=== PATIENT | male | born 1960 | race Caucasian/White ===

== ENCOUNTER 2017-11-11 09:49 | Outpatient (CLI) | payer BC | END 2017-11-11 09:50 | disposition home or self-care (01) | LOC: BICRAD 09:49 | PROVIDERS: ATTEND Family Medicine | DX: M79.672 Pain in left foot (principal) ==

== ENCOUNTER 2018-09-04 11:11 | Outpatient (CLI) | payer BC ==
--- NOTE | 2018-09-04 11:39 | RAD ---
EXAM: Chest Two Views 09/04/2018 11:36 AM HISTORY: Atypical pneumonia COMPARISON: None. FINDINGS: Heart: Normal in size and contour. Pulmonary vessels: Normal. Costophrenic angles: Clear. Lungs: No confluent pneumonia, overt edema, pleural effusion, or other acute process. Pneumothorax: None. Osseous structures:Intact. Additional findings: None. IMPRESSION: No significant acute intrathoracic disease.
== END 2018-09-04 11:12 | disposition home or self-care (01) ==
LOC: BICRAD 11:11
PROVIDERS: ATTEND Family Medicine
DX: J18.9 Pneumonia, unspecified organism (principal)
CPT/HCPCS: 71046

== ENCOUNTER 2023-11-02 12:19 | Outpatient (CLI) | payer BC ==
[2023-11-02 13:46] LABS: Bilirubin Neg (Negative); Blood, Urine 250 (Negative); Clarity Clear (Clear); Glucose, Urine (Dipstick) Normal (Negative); Ketone, Urine Negative (Negative); Leukocyte Negative (Negative); Nitrite Negative (Negative); Protein, Urine (Dipstick) Negative (Neg-Trace); Urobilinogen Normal mg/dL (Less than 2); pH, Urine 6.5 (5.0-9.0)
[2023-11-02 14:00] LABS: PTT 27.9 sec (22.0-33.0); Prothrombin Time 10.7 sec (9.5-12.1)
[2023-11-02 14:03] LABS: WBC/HPF 0-3 HPF (0-3)
[2023-11-02 14:04] LABS: Anion Gap 14 mmol/L (10-20); BUN (Urea Nitrogen) 19 mg/dL (8.4-25.7); Bacteria/HPF Rare-Few HPF (None Seen); Calc. Creatinine Clearance 0 mL/min (70-130); Calcium 9.4 mg/dL (7.8-10.44); Carbon Dioxide 25 mmol/L (23-31); Chloride 105 mmol/L (98-107); Estimated GFR 100; Glucose 96 mg/dL (80-115); Potassium 4.2 mmol/L (3.5-5.1); Sodium 140 mmol/L (136-145); Squamous Epithelial None Seen HPF (0-3); Transitional Epithelial 0-3 HPF (None Seen)
[2023-11-02 14:07] LABS: Hemoglobin 14.4 g/dL (13.5-17.5); Mean Corpuscular HGB CONC 34.3 g/dL (32.0-36.0); Mean Corpuscular Hemoglobin 31.2 pg (27.0-33.0); Mean Corpuscular Volume 90.9 fL (81.2-95.1); Platelet Count 264 10x3/uL (150-450); RBC Distribution Width 13.3 % (11.5-14.5); Red Blood Cell (RBC) Count 4.62 10x6/uL (4.32-5.72); White Blood Cell (WBC) Count 4.8 10x3/uL (3.5-10.5)
== END 2023-11-02 12:20 | disposition home or self-care (01) ==
LOC: LABBT 12:19
PROVIDERS: ATTEND Urology
DX: Z01.818 Encounter for other preprocedural examination (principal); N20.0 Calculus of kidney
CPT/HCPCS: 80048; 81001; 85027; 85610; 85730; 87086; 93005; 93010

== ENCOUNTER 2023-11-16 05:39 | Day surgery (SDC) | payer BC ==
[2023-11-02 13:30] VITALS: BMI 20.9
[2023-11-16] MEDS ORDERED: LevoFLOXacin D5W 500 mg (100 mL) BAG ONE (06:23)
[2023-11-16] MEDS ORDERED: PROPOFOL 20 ML ONE (07:25)
[2023-11-16] MEDS ORDERED: ePHEDrine Sulfate 50 MG/10 ML VIAL ONE (07:25)
[2023-11-16] MEDS ORDERED: fentaNYL PF 100 MCG/2 ML SYRINGE ONE (07:25)
[2023-11-16] MEDS ORDERED: Ondansetron PF 4 MG/2 ML Vial ONE (07:27)
[2023-11-16] MEDS ORDERED: Ketorolac Tromethamine 30 MG (1 mL) VIAL ONE (07:27)
[2023-11-16] MEDS ORDERED: Dexamethasone 20 MG/5 ML VIAL ONE (07:27)
[2023-11-16] MEDS ORDERED: Lidocaine 1% PF 5 ML VIAL ONE (07:27)
[2023-11-16] MEDS ORDERED: Lidocaine 4% Topical Sol 50 ML BOT ONE (07:30)
[2023-11-16] MEDS ORDERED: NEOSTIGMINE 3 MG/3 ML SYRINGE ONE (07:37)
[2023-11-16] MEDS ORDERED: Rocuronium Bromide 10 MG/ML (10ML VIAL) ONE (07:37)
[2023-11-16] MEDS ORDERED: Glycopyrrolate 0.2 MG/ML 5 ML SYRINGE ONE (07:37)
[2023-11-16] MEDS ORDERED: fentaNYL 50 mcg/mL 1 mL Vial ONE (08:12)
[2023-11-16] MEDS ORDERED: Iopamidol 15 ML ONE (09:00)
[2023-11-16] MEDS ORDERED: Phenazopyridine HCl 100 MG TAB ONE (09:12)
[2023-11-16] MEDS ORDERED: Oxybutynin 5 MG TAB ONE (09:12)
== END 2023-11-16 11:17 | disposition home or self-care (01) ==
LOC: SDC 05:39
PROVIDERS: ATTEND Urology
PROC: 0TC68ZZ Extirpation of Matter from Right Ureter, Via Natural or Artificial Opening Endoscopic (ICD-10-PCS; principal; 2023-11-16)
PROC: 0TC18ZZ Extirpation of Matter from Left Kidney, Via Natural or Artificial Opening Endoscopic (ICD-10-PCS; principal; 2023-11-16)
PROC: 0T788DZ Dilation of Bilateral Ureters with Intraluminal Device, Via Natural or Artificial Opening Endoscopic (ICD-10-PCS; principal; 2023-11-16)
DX: N20.2 Calculus of kidney with calculus of ureter (principal); E78.00 Pure hypercholesterolemia, unspecified
CPT/HCPCS: 82365; 88300; C1747; C1769; C2617; J1100; J1885; J1956; J2405; J2704; J3010; Q9967